=== PATIENT | male | born 1960 | race Hispanic/Latino ===

== ENCOUNTER 2020-06-10 20:16 | Emergency (ER) | payer OTHER, SELFPAY ==
--- NOTE | ~2020-06-10 | CT_ITS ---
EXAMINATION: CT abdomen pelvis w con DATE: 06/11/2020 01:58 INDICATION: Abdominal pain. Constipation. TECHNIQUE: Computed tomography (CT) of the abdomen and pelvis was performed with 100 mL Omnipaque 350 intravenous contrast. Automated exposure control and iterative reconstruction technique were employe d. The dose-length product was 248.09 mGy-cm. COMPARISON: None. FINDINGS: The visualized portions of the lung bases demonstrate minimal atelectasis. No pleural effus ion. The heart size is normal. No pericardial effusion. The liver, gallbladder, spleen, pancreas, adr enal glands, and kidneys are normal. There are no dilated loops of bowel. The appendix is normal. The re are no pathologically enlarged lymph nodes. There is no free intraperitoneal fluid. There is a rig ht-sided hydrocele. There is mild thoracal lumbar spondylosis. IMPRESSION: 1. Right-sided hydrocele. Reviewed, dictated and finalized at location A. IMPRESSION: 1. Right-sided hydrocele.
[2020-06-10 20:56] VITALS: BP 140/72; PULSE 59; RESP 16; TEMP 36.4; O2SAT 100
--- NOTE | 2020-06-11 00:17 | ED.ABDPAIN ---
HPI - Abdominal Pain General Chief Complaint: Abdominal Pain Stated Complaint: constipated Time Seen by Provider: 06/11/20 00:16 Source: patient and RN notes reviewed Mode of arrival: ambulatory Limitations: language barrier History of Present Illness HPI narrative: Patient is 60 years old male have trouble to have a bowel movement over the last 3 days. Patient received a stool softener today and was not able to have a bowel movement. Patient had a bowel movement 10 minutes prior to be seen in the emergency room. Currently feeling okay and would like to go home. Patient denies any fever, chills, nausea, vomiting. Related Data Allergies Allergy/AdvReac Type Severity Reaction Status Date / Time No Known Allergies Allergy Verified 06/10/20 20:17 Review of Systems Review of Systems: Narrative: CONSTITUTIONAL: Denies fever, chills, or sweats. EYES: Denies visual changes, redness, or discharge. ENT: Denies rhinorrhea, congestion, sore throat, or otalgia. CARDIOVASCULAR: Denies chest pain, palpitations, or edema. RESPIRATORY: Denies cough or dyspnea. GASTROINTESTINAL: Mild abdominal pain GENITOURINARY: Denies dysuria or hematuria. SKIN: Denies rash or itching. MUSCULOSKELETAL: Denies back pain, joint pain, or myalgia. NEUROLOGIC: Denies headache, numbness, or weakness. PSYCHIATRIC: Denies anxiety or depression. Exam Narrative: Exam Narrative: General appearance: Well-developed, well-nourished Skin: Normal color Head: Normocephalic, nontraumatic Eyes: Clear conjunctiva ENT: Oropharynx normal, ears normal, nose normal Neck: Supple, nontender Chest and respiratory: Airway patent, no respiratory distress, no accessory muscle use Heart: Regular rate/rhythm Abdomen: Soft, nontender, no organomegaly, quiet bowel sounds Vascular: Normal peripheral pulses, normal capillary refill. Musculoskeletal: Normal range of motion, nontender back Neurologic: Alert and oriented ?3, [employer] is normal as tested, no gross motor deficit Course Course Emergency Course: Stable, resolved Vital Signs Vital signs: Vital Signs Temperature 36.4 C 06/10/20 20:56 Pulse Rate 59 L 06/10/20 20:56 Respiratory Rate 16 06/10/20 20:56 Blood Pressure 140/72 06/10/20 20:56 Pulse Oximetry 100 06/10/20 20:56 Temperature 36.4 C 06/10/20 20:56 Pulse Rate 59 L 06/10/20 20:56 Respiratory Rate 16 06/10/20 20:56 Blood Pressure 140/72 06/10/20 20:56 Pulse Oximetry 100 06/10/20 20:56 MDM - Abdominal Pain MDM Narrative Medical decision making narrative: Patient presents with constipation and mild abdominal pain. Labs, CT abdomen and pelvis with IV contrast, UA ordered. Further plan to follow. Differential Diagnosis Differential diagnosis: Likely abdominal pain, constipation, diverticulitis and pancreatitis Imaging Data Radiologist's impression: CT abdomen and pelvis with IV contrast showed Cardiac no acute abnormalities. Critical Care Time Critical Care Time Critical Care Time: Yes Total Critical Care Time: 30 Discharge Plan Discharge Clinical Impression: Elevated lipase Abdominal pain Qualifiers: Abdominal location: generalized Qualified Code(s): R10.84 - Generalized abdominal pain Constipation Qualifiers: Constipation type: unspecified constipation type Qualified Code(s): K59.00 - Constipation, unspecified Patient Disposition: Home, Self-Care Condition: Improved Instructions: Constipation (ED), Abdominal Pain (ED) Additional Instructions: Return if symptoms are worsening , call your family physician for appointment, take Tylenol as as needed for aches and pain, continue home medications. Patient Language: Slovenian Tammy
[2020-06-11 00:42] LABS: Basophils Percent Auto 0.3 % (0.2-1.2); Eosinophils Percent Auto 0.1 % (0-4.4); Hematocrit 39.2 % (42.0-52.0); Hemoglobin 12.7 g/dL (14.0-18.0); Immature Granulocyte Absolute 0.02 K/mm3 (0.00-0.031); Immature Granulocyte Percent A 0.2 % (0-0.5); Lymphocytes Absolute Auto 0.81 K/mm3 (0.9-3.2); Lymphocytes Percent Auto 7.4 % (18.3-44.2); Mean Corpuscular HGB Conc 32.4 g/dl (32-36); Mean Corpuscular Hemoglobin 28.9 pg (26-34); Mean Corpuscular Volume 89.3 fl (80-100); Mean Platelet Volume 9.9 fl (7.4-10.4); Monocytes Absolute Auto 0.7 K/mm3 (0.1-0.6); Monocytes Percent Auto 6.5 % (2.6-8.5); Neutrophils Absolute Auto 9.4 K/mm3 (1.3-6.7); Neutrophils Percent Auto 85.5 % (45.5-73.1); Platelet Count Result 344 k/mm3 (150-375); Red Blood Count 4.39 M/mm3 (4.6-6.20); Red Cell Distribution Width 14.3 % (11.5-14.5)
[2020-06-11 00:51] LABS: Alanine Aminotransferase 34 U/L (4-50); Albumin Level 4.6 g/dL (3.5-5.1); Alkaline Phosphatase 40 U/L (38-126); Anion Gap 10 mmol/L (8-16); Aspartate Amino Transferase 44 U/L (17-59); Bilirubin,Total 0.7 mg/dL (0.2-1.3); Blood Urea Nitrogen 32 mg/dL (9-20); Calcium 9.4 mg/dL (8.4-10.2); Carbon Dioxide 24 mmol/L (22-30); Chloride 104 mmol/L (98-107); Estimated CRCL calculation 56 ml/min; Estimated Glomerular Filt Rate > 60; Glucose 169 mg/dL (75-110); Lipase 813 U/L (23-300); Potassium 4.8 mmol/L (3.4-5.0); Sodium 138 mmol/L (137-145)
[2020-06-11] MEDS: SODIUM CHLORIDE 0.9% IV 1,000 ML 999 ML IV CONT (01:57)
--- NOTE | 2020-06-11 02:17 | PC.NURSE ---
Hepatology Physician used on Ipad. pt is pashto speaking only. Pt was noted by ED staff to be removing own IV, and reported that he felt better and did not want a ct scan. ED MD then spoke with pt, and this RN notified that pt needed to sign refusal form for treatment. this RN then was told that pt was agreeable to ct and needed new iv site. Kenyan-speaking teacher adult education utilized via Ipad and pt verbalized that he would not attempt to remove own iv.
[2020-06-11 02:29] VITALS: BP 136/68; PULSE 78; RESP 17; O2SAT 99
[2020-06-11 03:05] VITALS: BP 126/72; PULSE 76; RESP 16; TEMP 36.7; O2SAT 99
--- NOTE | 2020-06-23 05:47 | PC.NURSE ---
Late entry for 06/11/20. NS 1000 ml Fluid bolus infused over 60 minutes. completed at 06/11/20 at 0200.
== END 2020-06-11 03:07 | disposition home or self-care (01) ==
PROVIDERS: Emergency Medicine; PCP Registered Nurse
DX: K59.00 Constipation, unspecified (principal); R10.84 Generalized abdominal pain; R74.8 Abnormal levels of other serum enzymes
CPT/HCPCS: 36415; 74177; 80053; 83690; 85025; 99284; J7030; Q9967

== ENCOUNTER 2023-08-31 13:29 | Emergency (ER) | payer OTHER, SELFPAY ==
[2023-08-31 13:47] VITALS: BP 93/52; PULSE 65; RESP 16; TEMP 36.3; O2SAT 99
[2023-08-31 13:50] VITALS: BP 93/52; PULSE 65; RESP 16; TEMP 36.3; O2SAT 99
[2023-08-31 14:27] LABS: EDINFLUASCREEN Negative; EDINFLUBSCREEN Negative; EDSTREPNEGPOS1 Presumptive Negative
--- NOTE | 2023-08-31 15:18 | ED.URI ---
HPI - URI/Sore Throat General Chief Complaint: Upper Respiratory Infection Stated Complaint: fever,sore throat,bodyaches Time Seen by Provider: 08/31/23 13:55 Source: patient, RN notes reviewed and hourly sign language interpreter Mode of arrival: ambulatory Limitations: no limitations History of Present Illness HPI Narrative: Patient presents today complaining of a 2-3 day history of subjective fever, mild cough, sore throat. States sore throat has been improving. Denies congestion, headache, chest pain, shortness of breath. He has taken Tylenol with some relief. Daughter and also present with similar symptoms Related Data Home Medications Medication Instructions Recorded Confirmed captopril 12.5 mg tablet 12.5 mg PO TID 08/31/23 08/31/23 citalopram 20 mg tablet 20 mg PO DAILY 08/31/23 08/31/23 empagliflozin 25 mg tablet 25 mg PO DAILY 08/31/23 08/31/23 (Jardiance) famotidine 20 mg tablet See Rx Instructions .Route .COMPLEX 08/31/23 08/31/23 fenofibrate 150 mg capsule 150 mg PO HS 08/31/23 08/31/23 finasteride 5 mg tablet 5 mg PO DAILY 08/31/23 08/31/23 metformin 1,000 mg tablet 1,000 mg PO BID 08/31/23 08/31/23 mirabegron 50 mg tablet,extended 50 mg PO DAILY 08/31/23 08/31/23 release 24 hr (Myrbetriq) pravastatin 20 mg tablet 20 mg PO DAILY 08/31/23 08/31/23 tamsulosin 0.4 mg capsule 0.4 mg PO DAILY 08/31/23 08/31/23 Allergies Allergy/AdvReac Type Severity Reaction Status Date / Time No Known Allergies Allergy Verified 08/31/23 13:46 Review of Systems Review of Systems: CONSTITUTIONAL: Denies body aches, chills, or sweats.+ subjective fever EYES: Denies visual changes, redness, or discharge. ENT: Denies rhinorrhea, congestion, or otalgia.+ sore throat CARDIOVASCULAR: Denies chest pain, palpitations, or edema. RESPIRATORY: Denies dyspnea.+ cough GASTROINTESTINAL: Denies abdominal pain, nausea, vomiting, or diarrhea. GENITOURINARY: Denies dysuria or hematuria. SKIN: Denies rash, itching, or wounds. MUSCULOSKELETAL: Denies back pain, joint pain, or myalgia. NEUROLOGIC: Denies headache, numbness, tingling, or weakness. PSYCH: Denies depression or anxiety. [facility] Past Medical History Medical History (Updated 08/31/23 @ 15:20 by Yane Brady, [facility], ) Diabetes High cholesterol Vitiligo Comments At time of signature, I have reviewed and agree with nursing past medical, surgical, social and family history unless otherwise noted. Please see nursing chart for further information. There is no relevant family history pertinent to the presenting complaint Exam Narrative: GENERAL: Well-appearing, well-nourished, and in no acute distress. HEAD: Normocephalic, atraumatic. EYES: EOMI. No redness or drainage. Conjunctivae normal. ENT: Mucous membranes pink and moist. Nares clear. No rhinorrhea. TMs normal bilaterally. Throat normal. Uvula midline. NECK: Normal AROM. Supple. No lymphadenopathy. CHEST: No respiratory distress. Clear to auscultation. HEART: Regular rate and rhythm. No murmur appreciated. EXTREMITIES: Normal range of motion. No edema. SKIN: Warm, dry, no rash. Capillary refill normal. Normal skin turgor. NEURO: No focal deficits. Alert and oriented x3. Gait steady. PSYCH: Normal affect. No signs of depression or anxiety. Course Course Level of Care: Express Care Visit Vital Signs Vital signs: Vital Signs Temperature 97.3 F L 08/31/23 13:47 Pulse Rate 65 08/31/23 13:47 Respiratory Rate 16 08/31/23 13:47 Blood Pressure 93/52 L 08/31/23 13:47 Pulse Oximetry 99 08/31/23 13:47 Oxygen Delivery Room Air 08/31/23 13:47 Temperature 97.3 F L 08/31/23 13:50 Pulse Rate 65 08/31/23 13:50 Respiratory Rate 16 08/31/23 13:50 Blood Pressure 93/52 L 08/31/23 13:50 Pulse Oximetry 99 08/31/23 13:50 Oxygen Delivery Room Air 08/31/23 13:50 Reviewed MDM - URI/Sore Throat MDM Narrative Medical decision making narrative: COVID positive. Patient decli
== END 2023-08-31 14:10 | disposition home or self-care (01) ==
PROVIDERS: Emergency Provider Nurse Practitioner; PCP Registered Nurse
DX: U07.1 COVID-19 (principal); E11.9 Type 2 diabetes mellitus without complications; E78.00 Pure hypercholesterolemia, unspecified
CPT/HCPCS: 87081; 87426; 87804; 87880; 99213; G0463